=== PATIENT | male | born 1950 | race Caucasian/White ===

== ENCOUNTER 2021-08-12 11:18 | Emergency (ER) | payer MEDICARE, OTHER, SELFPAY ==
--- NOTE | ~2021-08-12 | XR_ITS ---
EXAMINATION: XR finger 3rd LT min 2V DATE: 08/12/2021 11:54 INDICATION: Pain at left third proximal interphalangeal joint and posteriorly at the distal interphal angeal joint. TECHNIQUE: Dorsal palmar, lateral and 2 oblique views of the left third digit were obtained COMPARISON: None FINDINGS: Bone alignment is normal. No fracture. Polyarticular osteoarthritis, severe at the second and third d istal interphalangeal joints with central erosions with gullwing configuration consistent with erosiv e osteoarthritis. Additional severe osteoarthritis at the first carpometacarpal joint. Mild osteoarth ritis at the triscaphe, midcarpal, second metacarpophalangeal and remaining visualized interphalangea l joints. Focal soft tissue swelling at the dorsal aspect of the third proximal interphalangeal joint . No soft tissue gas or radiopaque foreign bodies. IMPRESSION: 1. 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 Reviewed, dictated and finalized at location A. IMPRESSION: 1. 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
[2021-08-12 11:34] VITALS: BP 120/80; PULSE 77; RESP 16; TEMP 36.8; O2SAT 99
--- NOTE | 2021-08-12 11:41 | ED.EXTPRO ---
HPI - Extremity Problem General Chief complaint: Extremity Problem,Nontraumatic Stated complaint: Finger Injury/Left Hand Time Seen by Provider: 08/12/21 11:41 Source: patient Mode of arrival: ambulatory Limitations: no limitations History of Present Illness HPI Narrative: 70 y/o male presented for c/o left middle finger pain, with redness and swelling; onset last night. Endorses hx arthritis pain to finger joints, but last night pain was more severe and is worse between DIP and PIP. Also endorses pustule to distal finger. Pain is severe, described as tingling. Cannot tolerate bending finger. Took Tylenol today. States he lifted objects for the dumpster this week, denies FB or injury. Related Data Home Medications Medication Instructions Recorded Confirmed Betahistine Dihydrochloride 8 mg PO DAILY 08/12/21 amlodipine 10 mg PO DAILY 08/12/21 08/12/21 atorvastatin 20 mg PO DAILY 08/12/21 08/12/21 levothyroxine 08/12/21 triamterene-hydrochlorothiazid 1 cap PO DAILY 08/12/21 08/12/21 Allergies Allergy/AdvReac Type Severity Reaction Status Date / Time No Known Allergies Allergy Verified 08/12/21 11:42 Review of Systems Review of Systems: CONSTITUTIONAL: Denies body aches, fever, chills EYES: Denies visual changes ENT: Denies rhinorrhea, congestion CARDIOVASCULAR: Denies chest pain, palpitations, or edema. RESPIRATORY: Denies cough or dyspnea. GASTROINTESTINAL: Denies abdominal pain, nausea, vomiting, or diarrhea. SKIN: Denies rash, itching, or wounds. MUSCULOSKELETAL: reports finger joint pain NEUROLOGIC: Denies headache, numbness, tingling, or weakness. PSYCH: Denies depression or anxiety. All systems reviewed & are unremarkable except as noted in HPI and below PMFSH Comments At time of signature, I have reviewed and agree with nursing past medical, surgical, social and family history unless otherwise noted. Please see nursing chart for further information. There is no relevant family history pertinent to the presenting complaint Exam Narrative: GENERAL: Well-appearing, and in no acute distress. HEAD: Normocephalic, atraumatic. EYES: conjunctivae clear NECK: Supple. CHEST: Speaks in full sentences. No respiratory distress. HEART: Regular rate and rhythm. Normal and equal peripheral pulses. EXTREMITIES: left 3rd digit with mild erythema and swelling from PIP to distal finger, limited ROM due to pain, tender with light palpation. reports normal sensation. lateral pinpoint size pustule with white center tender to palpation. No obvious deformity; alignment normal, pulse palpable and equal bilaterally, skin warm, dry, pink. Capillary refill less than 3 seconds. SKIN: Warm, dry, no rash. NEURO: Alert and oriented x3. PSYCH: Normal mood and affect Course Course Emergency Course: Patient is aware of diagnosis, understands and agrees to treatment plan. Anticipatory guidance given. Patient agrees to follow-up as directed and is aware of reasons to seek care at the emergency department. Portions of this record may have been created with voice recognition software Level of Care: Express Care Visit Vital Signs Vital signs: Vital Signs Temperature 98.3 F 08/12/21 11:34 Pulse Rate 77 08/12/21 11:34 Respiratory Rate 16 08/12/21 11:34 Blood Pressure 120/80 08/12/21 11:34 Pulse Oximetry 99 08/12/21 11:34 Temperature 98.3 F 08/12/21 11:34 Pulse Rate 77 08/12/21 11:34 Respiratory Rate 16 08/12/21 11:34 Blood Pressure 120/80 08/12/21 11:34 Pulse Oximetry 99 08/12/21 11:34 Reviewed MDM - Extremity (Nontraumatic) MDM Narrative Medical decision making narrative: X-ray of left hand reviewed with patient, shows polyarticular arthritis and erosive osteoarthritis. He is advised to follow-up with his PCP for further evaluation and recommendations. Given the presentation with erythema, swelling, and pustule he will be prescribed an antibiotic and steroid to help with the pain and inf
== END 2021-08-12 12:28 | disposition home or self-care (01) ==
PROVIDERS: Emergency Provider Nurse Practitioner Family; PCP Family Medicine
DX: M79.645 Pain in left finger(s) (principal); I10 Essential (primary) hypertension; E03.9 Hypothyroidism, unspecified; H81.09 Meniere's disease, unspecified ear
CPT/HCPCS: 73140; 99213; G0463